=== PATIENT | male | born 1975 | race Caucasian/White ===

== ENCOUNTER 2017-05-28 19:46 | Observation (INO) | payer OTHER ==
--- NOTE | 2017-05-28 20:18 | CPEKG ---
Heart Rate: 94 RR Interval: 638 QRSD Interval: 80 QT Interval: 360 QTC Interval: 451 QRS [place]: 16 T Wave [place]: 6 EKG Severity - ABNORMAL ECG - EKG Impression: ATRIAL FIBRILLATION, V-RATE 71-128 EKG Impression: MULTIPLE VENTRICULAR PREMATURE COMPLEXES Electronically Signed By: Tello Sharif 28-May-2017 23:48:14
--- NOTE | 2017-05-28 20:57 | EDPHY ---
H & P Time Seen by Provider: 05/28/17 20:56 HPI/ROS: Chief complaint. Shortness of breath, tingling HPI. 42-year-old male presents emergency department with sensitive chest discomfort shortness of breath. Symptoms began early this morning. He has some dizziness on standing with activity. He notes left anterior chest pressure going to neck and both arms. Near syncope. Symptoms are worse with exertion. No fever cough. No abdominal pain. No leg symptoms. No similar symptoms previously. ROS Constitutional. no fever/chills, no weakness Eyes. no problems with vision ENT. no sore throat, no nasal drainage Cardiovascular. Chest discomfort Respiratory. Shortness of breath Abdominal. no abdominal pain, no nausea/vomiting, no diarrhea . no problems urinating MS. no calf pain/swelling, no neck/back pain, no joint pain Skin. no rash Lymph. no swollen glands Neuro. Dizziness Past Medical/Surgical History: Dyslipidemia Father with atrial fibrillation Social History: , nonsmoker, no alcohol Smoking Status: Never smoked Physical Exam: General Appearance: Alert well-developed male mild distress vital signs are stable Eyes: Pupils equal and round no pallor or injection. ENT, Mouth: Mucous membranes are moist. Respiratory: There are no retractions, lungs are clear to auscultation. Cardiovascular: Irregularly irregular rate and rhythm Gastrointestinal: Abdomen is soft and nontender, no masses, bowel sounds normal. Neurological: Awake and alert, sensory and motor exams grossly normal. Skin: Warm and dry, no rashes. Musculoskeletal: Neck is supple nontender. Extremities symmetrical, full range of motion. Psychiatric: Patient is oriented X 3, there is no agitation. Constitutional: Initial Vital Signs Temperature (C) 36.7 C 05/28/17 20:01 Heart Rate 85 05/28/17 20:01 Respiratory Rate 18 05/28/17 20:01 O2 Sat (%) 98 05/28/17 20:01 O2 Delivery Mode Room Air Allergies/Adverse Reactions: No Allergies [NKA] Allergy (Verified 03/27/13 15:39) Home Medications: Medication Instructions Recorded NK [No Known Home Meds] 05/28/17 Medical Decision Making - Diagnostics EKG Interpretation: EKG interpreted by me shows atrial fibrillation. Normal axis. QRS is normal. No significant ST elevation or depression. Ventricular response is 90 Imaging Results: Imaging Impressions Chest X-Ray 05/28/17 21:04 Impression: Negative frontal chest radiograph. One-view chest x-ray interpreted by me is normal Procedures: IV normal saline, monitor ED Course/Re-evaluation: Re-evaluation 10:20 p.m.--patient is stable. We discussed imaging lab results as well as EKG. We discussed treatment plan including recommendation for admission. He expresses understanding and IV fluids it appears the patient is somewhat dehydrated. Subcu Lovenox I consulted discussed case with Dr. Espinosa, hospitalist, who agrees to the admission Differential Diagnosis: New onset atrial fibrillation in a patient who lives remotely. I considered acute coronary syndrome. - Data Points Laboratory Results: Laboratory Results 05/28/17 20:19 05/28/17 20:19 05/28/17 05/28/17 05/28/17 20:19 20:19 20:19 WBC 13.15 10^3/uL H 10^3/uL (3.80-9.50) RBC 5.03 10^6/uL 10^6/uL (4.40-6.38) Hgb 15.9 g/dL g/dL (13.7-17.5) Hct 44.2 % % (40.0-51.0) MCV 87.9 fL fL (81.5-99.8) MCH 31.6 pg pg (27.9-34.1) MCHC 36.0 g/dL g/dL (32.4-36.7) RDW 12.2 % % (11.5-15.2) Plt Count 282 10^3/uL 10^3/uL (150-400) MPV 9.5 fL fL (8.7-11.7) Neut % (Auto) 72.3 % % (39.3-74.2) Lymph % (Auto) 19.7 % % (15.0-45.0) [place] % (Auto) 6.9 % % (4.5-13.0) Eos % (Auto) 0.5 % L % (0.6-7.6) Baso % (Auto) 0.2 % L % (0.3-1.7) Nucleat RBC Rel Count 0.0 % % (0.0-0.2) Absolute Neuts (auto) 9.51 10^3/uL H 10^3/uL (1.70-6.50) Absolute Lymphs (auto) 2.59 10^3/uL 10^3/uL (1.00-3.00) Absolute Monos (auto) 0.91 10^3/uL H 10^3/uL (0.30-0.80) Absolute Eos (auto) 0.06 10^3/uL 10^3/uL (0.03-0.40) Absolute Basos (auto) 0.03 10^3/uL 10^3/uL (0.02-0.10) Absolute Nucleated RBC 0.00 10^3/uL 10^3/uL (0-0.01) Immature Gran % 0.4 % % (0.0-1.1) Immature Gran # 0.05 10^3/uL 10^3/uL (0.00-0.10) D-Dimer 0.39 ug/mLFEU ug/mLFEU (0.00-0.50) Sodium 139 mEq/L mEq/L (134-144) Potassium 3.7 mEq/L mEq/L (3.5-5.2) Chloride 106 mEq/L mEq/L (97-110) Carbon Dioxide 20 mEq/l L mEq/l (22-31) Anion Gap 13 mEq/L mEq/L (8-16) BUN 29 mg/dL H mg/dL (7-23) Creatinine 1.5 mg/dL H mg/dL (0.7-1.3) Estimated GFR 51 Glucose 97 mg/dL mg/dL (70-100) Calcium 9.8 mg/dL mg/dL (8.5-10.4) Troponin I < 0.012 ng/mL ng/mL (0-0.034) Medications Given: Discontinued Medications Enoxaparin Sodium (Lovenox) 90 mg SC ONCE ONE Stop: 05/28/17 22:46 Last Admin: 05/28/17 22:50 Dose: 90 mg Sodium Chloride (Ns) 1,000 mls @ 0 mls/hr IV EDNOW ONE; Wide Open PRN Reason: Protocol Stop: 05/28/17 22:31 Last Admin: 05/28/17 22:40 Dose: 1,000 mls Sodium Chloride (Ns) 1,000 mls @ 0 mls/hr IV EDNOW ONE; Wide Open PRN Reason: Protocol Stop: 05/28/17 22:31 Last Admin: 05/28/17 22:41 Dose: 1,000 mls Departure - Departure Disposition: [facility] Inpatient Acute Clinical Impression: Atrial fibrillation Qualifiers: Atrial fibrillation type: persistent Qualified Code(s): I48.1 - Persistent atrial fibrillation Condition: Fair Referrals: Les Carrera DO [Primary Care Provider] - As per Instructions
[2017-05-28 21:08] LABS: % IMMATURE GRANULYOCYTES 0.4 % (0.0-1.1); ABSOLUTE IMMATURE GRANULOCYTES 0.05 10^3/uL (0.00-0.10); ADD DIFF? NO; ADD MORPH? NO; ADD SCAN? NO; ATYPICAL LYMPHOCYTE FLAG 0 (0-99); FRAGMENT RBC FLAG 0 (0-99); HEMATOCRIT 44.2 % (40.0-51.0); HEMOGLOBIN 15.9 g/dL (13.7-17.5); LEFT SHIFT FLG 0 (0-99); LIPEMIA HEMOLYSIS FLAG 90 (0-99); MEAN CELL HEMOGLOBIN 31.6 pg (27.9-34.1); MEAN CELL VOLUME 87.9 fL (81.5-99.8); MEAN PLATELET VOLUME 9.5 fL (8.7-11.7); PLATELET CLUMPS FLAG 0 (0-99); PLATELET COUNT 282 10^3/uL (150-400); RED BLOOD CELL COUNT 5.03 10^6/uL (4.40-6.38); RED CELL DISTRIBUTION WIDTH 12.2 % (11.5-15.2)
[2017-05-28 21:14] LABS: ANION GAP 13 mEq/L (8-16); CALCIUM 9.8 mg/dL (8.5-10.4); CARBON DIOXIDE 20 mEq/l (22-31); CHLORIDE 106 mEq/L (97-110); CREATININE 1.5 mg/dL (0.7-1.3); GLOMERULAR FILTRATION RATE 51; GLUCOSE 97 mg/dL (70-100); POTASSIUM 3.7 mEq/L (3.5-5.2); SODIUM 139 mEq/L (134-144)
[2017-05-28 21:26] LABS: TROPONIN I < 0.012 ng/mL (0-0.034)
[2017-05-28] MEDS ORDERED: NS 1,000 ML IV ONE ×2 (22:30)
[2017-05-28] MEDS ORDERED: ENOXAPARIN 100 MG/ML SYR SC ONE (22:45)
[2017-05-28] MEDS ORDERED: ACETAMINOPHEN 325 MG TAB PO PRN (23:07)
[2017-05-28] MEDS ORDERED: ONDANSETRON 4 MG/2 ML VIAL IVP PRN (23:07)
--- NOTE | 2017-05-29 01:15 | GHP ---
[f rep st] HISTORY AND PHYSICAL DATE OF ADMISSION: 05/28/2017 The patient is a pleasant 42-year-old gentleman with a family history of coronary disease, no real p ast medical history, who presents with palpitation or chest heaviness. Last week, he was in [place], and he may have felt a little bit off, but no chest heaviness. He has not had palpitations, chest pain, chest burning, or dyspnea on exertion. He noted symptoms at about 9 o'clock this morni ng. There was some orthopnea as well. He also noted some anterior chest pressure going to his neck and both arms. The patient does not have a history of hypertension, no previous history of stroke. He does not smo ke. He drinks alcohol on the weekends, not that often. He does not on perform super endurance exer cise. He does have a family history of atrial fibrillation. REVIEW OF SYSTEMS: Complete 10-point review of systems conducted, negative except as noted in the H PI. PAST MEDICAL HISTORY: Hyperlipidemia. He had cataract surgery. Mild reflux. FAMILY HISTORY: Father had atrial fibrillation. SOCIAL HISTORY: , lives in [place]. Works in the construction industry. No stimulant dr palafox. Lifetime nonsmoker. ALLERGIES: No known drug allergies. MEDICATIONS ARE: Qmly-pmn-tmthbty reflux medicine. PHYSICAL EXAMINATION: VITAL SIGNS: Temp 36.7, pulse 85, breathing 18 times a minute, 98% on room a ir, blood pressure 108/70. GENERAL: No acute distress. HEENT: Sclerae anicteric. Oropharynx elizabeth ar. Mucous membranes moist. NECK. Supple. No lymphadenopathy, JVD. LUNGS: Clear to auscultatio n bilaterally. HEART: S1, S2. ABDOMEN: Soft, nontender, nondistended. LOWER EXTREMITIES: Witho ut edema. Calves nontender. SKIN: Without rash. NEUROLOGIC: Nonfocal. LABORATORY DATA: Sodium 139, potassium 3.7, chloride 106, bicarb 20, BUN 29, creatinine 1.5, glucos e less than 0.012. D-dimer 0.039. White count 13.1, hematocrit 44, platelets 282,000. Chest x-ray , interpreted by me, shows no acute cardiopulmonary disease. EKG, interpreted by me, shows atrial f ibrillation at 94 with normal axis and intervals. There are no ST or T-wave changes. There are kendell quent PVC's. I discussed the case with Dr. Tello Sharif, as well as Dr. Salvador Donis. ASSESSMENT/PLAN: This is a 42-year-old gentleman presents with atrial fibrillation: 1. Atrial fibrillation. It is not a clear risk factor that he has. He is well rate controlled. D oes not even know agent. He was given enoxaparin here. I will make him n.p.o. past midnight. I di scussed with Cardiology who will perform ROMÁN cardioversion in the morning. His CHADS Vasc is 0. 2. Elevated creatinine. His baseline creatinine is a bit lower, looks like it is about 1.2. Clini colin, he appears to be dry. He received some IV fluids in the emergency department. Will repeat i n the morning. 3. Question hypothyroidism. The patient has atrial fibrillation. Will check in the morning. 4. Mild acidosis. The patient has a non gap acidosis. Will repeat it in the morning. 5. Leukocytosis, no clear etiology. Will follow. Perhaps he has a viral illness. He has a normal differential. 6. Disposition. Observation status. /[id number]/MODL
[2017-05-29 05:00] LABS: ANION GAP 10 mEq/L (8-16); CALCIUM 8.5 mg/dL (8.5-10.4); CARBON DIOXIDE 22 mEq/l (22-31); CHLORIDE 111 mEq/L (97-110); CREATININE 1.4 mg/dL (0.7-1.3); GLOMERULAR FILTRATION RATE 55; GLUCOSE 88 mg/dL (70-100); POTASSIUM 4.2 mEq/L (3.5-5.2); SODIUM 143 mEq/L (134-144)
[2017-05-29] MEDS ORDERED: ATROPINE SULFATE 1 MG/10 ML SYR ONE (08:59)
[2017-05-29] MEDS ORDERED: ENOXAPARIN 80 MG/0.8 ML SYR SC SCH (09:00)
[2017-05-29] MEDS ORDERED: LIDOCAINE 2% 5 ML SDV ONE (09:35)
[2017-05-29] MEDS ORDERED: PROPOFOL 200 MG/20 ML VIAL ONE (09:35)
--- NOTE | 2017-05-29 09:47 | PDANEPAE ---
ANE History of Present Illness 42 year old male with recent onset of AF with CP/SOB/fatigue. This is the first arrhythmia for this patient. ANE Past Medical History Past Medical History: No URI/fever. NPO today. Cataract surgery B - Cardiovascular History Hx Hypertension: No Hx Arrhythmias: Yes Hx Chest Pain: Yes Hx Coronary Artery / Peripheral Vascular Disease: No Hx CHF / Valvular Disease: No Hx Palpitations: No - Pulmonary History Hx COPD: No Hx Asthma/Reactive Airway Disease: No Hx Recent Upper Respiratory Infection: No Hx Oxygen in Use at Home: No Hx Sleep Apnea: No - Endocrine History Hx Diabetes: No - Renal History Hx Renal Disorders: No - Liver History Hx Hepatic Disorders: No - GI History GERD: mild GERD Comment: Controlled with omeprazole ANE Review of Systems - Exercise capacity METS (RN): 5 METS METS Comment: Before recent onset of arrhythmia - Systems Constitutional: Reports: no symptoms Cardiac: Reports: chest pain Respiratory: Reports: no symptoms ANE Patient History - Allergies Allergies/Adverse Reactions: No Allergies [NKA] Allergy (Verified 03/27/13 15:39) - Home Medications Home medications: home medication list seen and reviewed Home Medications: NK [No Known Home Meds] 05/28/17 [Last Taken Unknown] - Anes Hx Anes Hx: no prior problems - Smoking Hx Smoking Status: Never smoked ANE Labs/Vital Signs - Labs Result Diagrams: 05/28/17 20:19 05/29/17 03:49 - Vital Signs Blood Pressure: 90/66 Heart Rate: 71 Respiratory Rate: 15 O2 Sat (%): 96 Height: 182.88 cm Weight: 90.72 kg ANE Physical Exam - Airway Mallampati Score: Class 3 Mouth exam: normal dental/mouth exam - Cardiovascular Cardiovascular: irregularly irregular - ASA Status ASA Status: II ANE Anesthesia Plan Total IV Anesthesia: TIVA GA
--- NOTE | 2017-05-29 10:15 | POSTANESTH ---
Post Anesthetic Evaluation Cardiovascular Status: Normal, Stable Respiratory Status: Normal, Stable Level of Consciousness/Mental Status: Can Participate in Eval, Mildly Sleepy, Arousable Pain Control: Adequate, Prn Tx Ordered Nausea/Vomiting Control: Adequate, Prn Tx Ordered Complications Possibly Related to Anesthesia: None Noted (Coughing a bit an awakening. Resolved as pt more alert and cough more effective. SpO2 >92% throughout awakening.)
--- NOTE | 2017-05-29 10:17 | CPEKG ---
Heart Rate: 85 RR Interval: 706 P-R Interval: 156 QRSD Interval: 80 QT Interval: 380 QTC Interval: 452 P [place]: 65 QRS [place]: 14 T Wave [place]: 34 EKG Severity - NORMAL ECG - EKG Impression: SINUS RHYTHM Electronically Signed By: Dario Donis 29-May-2017 15:13:53
--- NOTE | 2017-05-29 10:46 | CPIP ---
[f rep st] INVASIVE CARDIAC PROCEDURE DATE OF PROCEDURE: 05/29/2017 PROCEDURE: 1. Transesophageal echocardiogram. 2. Intraoperative bubble study. 3. Cardioversion. The patient gave informed consent for transesophageal echocardiographic study and a cardioversion. H is was present and she is a nurse and agreed with this plan. They understood the risks and the options and want to proceed. DESCRIPTION OF PROCEDURE: The transesophageal echocardiogram was performed with no problem at all, passing the scope and excellent pictures were obtained. His interatrial septum was excellent on the bubble study. He had no signs of clot in the left atrial appendage. No smoke and no other problems. We then proceeded to cardiovert him with 360 watt seconds with 1 cardioversion. He converted from at rial fibrillation to normal sinus rhythm. He is waking up at the time of my dictation. He is talking to the nursing staff. The whole procedure was done with Anesthesia present. There were no complications. His condition at the end of study was excellent. RECOMMENDATIONS: 1. Follow up with Dr. Donis in 4 weeks. 2. Eliquis 5 mg twice a day for 5 weeks after today. 3. Ongoing preventative therapy for his lipid issues. Electrophysiology consultation is available at any time. Full sleep study has been ordered. /[id number]/MODL
--- NOTE | 2017-05-29 11:05 | GCON ---
[f rep st] CONSULTATION CARDIOLOGY CONSULTATION CHIEF COMPLAINT: Shortness of breath. Palpitations. He has been having some fast heartbeats, some discomfort in the center of his chest since yesterday morning. He has not had this before, although he has a family history of atrial fibrillation. His is a nurse who used to work at [facility] [employer], and she has been watching him. He has no orthopnea , PND, dyspnea on exertion usually. He does not normally have chest pain. He has had no fever, chills, cough. No nausea vomiting, diarrhea, or constipation. He is active and he is not having any limiting symptoms except for his current fast heartbeat and some chest discomfort that he has just had. There is no radiation to the jaw or neck. There is no radiation to the arm. There is no exertional discomfort. He has no history of trauma, no history of hot, swollen joints, no history of rashes. He does not drink significant amounts of alcohol. He has a little bit of snoring but his says that is not a major issue and he does not have apnea. CARDIAC RISK FACTORS: Negative for hypertension, diabetes mellitus, hyperuricemia, smoking, obesity or family history of premature coronary disease. Positive for dyslipidemia. He is untreated. REVIEW OF SYSTEMS: A 12-point review of systems negative, except as noted above. He has had bilateral cataract surgery. SOCIAL HISTORY: He lives in [place]. His is a nurse who used to work here at [employer] [facility]. 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 He does not smoke. He does not drink significant amounts of alcohol. ALLERGIES: None. MEDICATIONS: No prescription medicines. PHYSICAL EXAMINATION: VITAL SIGNS: Blood pressure 110/70, heart rate 115, respiratory rate 12. GENERAL: He is comfortable in the hospital bed. HEENT: Pupils status post iridectomy. Mucous membranes and mouth moist. NECK: Supple. CARDIOVASCULAR: S1, S2, systolic murmur in the left sternal border. No diastolic murmur. No S3, S4. No rubs. PULMONARY: Rhonchi. No rales, wheezing, or dullness. CVA: No tenderness. CARDIOVASCULAR: Irregularly irregular heart rate. Soft systolic murmur. ABDOMEN: Soft, nontender, without masses. EXTREMITIES: No edema, inflammation, or ulceration. SKIN: Age-related changes. NEUROLOGIC: Cranial nerves 2-12 grossly normal except for the iridectomy. His motor and sensory intact. PSYCH: No obvious anxiety or depression. LYMPH: No obvious lymphadenopathy. LABORATORY DATA: D-dimer 0.03. His creatinine is 1.5, BUN 29, potassium 3.7. Hematocrit 44, platelets 282. He has atrial fibrillation. ASSESSMENT AND PLAN: 1. Atrial fibrillation. The cause for his atrial fibrillation is not clear. I want for sure for him to do a sleep study, and we have discussed this. I have offered him a consultation with the electrophysiology service but he is not interested in that right now. He would like to proceed with ROMÁN cardioversion. He understands the risks and the options. There is nothing to suggest pulmonary embolic disease or any other severe pulmonary disease as a cause for his atrial arrhythmias at this time but we will watch over time to see if he develops any other issues. We have talked about Electrophysiology being available to him any time if he would like to use them. He understands and is aware of that. His is a nurse who worked at [employer] [facility] and I have known her for years. She would like to follow up with me in 5 weeks after he has finished his anticoagulation and then we will see if he gets a repeat episode. We will send him to Electrophysiology then but if it goes away and he does not have any recurrences for years and years, we will just monitor his health overall, watch his lipids and make sure he is doing okay. She agrees that he will get a sleep study. 2. Status post iridectomy. 3. Dyslipidemia. He is working on that with his diet and exercise. All his questions have been answered. We are very happy to proceed with his procedures. /[id number]/MODL MTDD
[2017-05-29 11:35] VITALS: BP 117/73; PULSE 60; RESP 20; TEMP 98.1; O2SAT 95
--- NOTE | 2017-05-29 14:06 | GDS ---
[f rep st] DISCHARGE SUMMARY ALL DIAGNOSES: Atrial fibrillation, new onset, with rates around 100 beats per minute. He was quit e symptomatic however. HOSPITAL COURSE: He underwent DC cardioversion by Dr. Donis, with successful return to normal sinu s rhythm. He also had a transesophageal echocardiogram along with this. He will be discharged on E liquis. I will not provide him any beta blockers or calcium channel blockers, given his borderline bradycardia. I gave him warnings for what to avoid while on Eliquis. He and his understand th is. They will follow up with Dr. Donis in about 1 month. /[id number]/MODL
--- NOTE | 2017-05-29 14:07 | ECHO ---
[id number] + + [address] : : [place] [address] : : [phone] + + Adult Echocardiographic Report + --------+ :Name: CRUZZENIA Date: 05/29/2017 09:35 AM : : Hospital Admission Number: [id number] Locat ion: [facility]: :: 1975 Gender: Male : :Age: 42 yrs Race: WH : :Reason For Study: Eval LV Fx : :History: Pre Cardioversion : + --------+ MMode/2D Measurements \T\ Calculations IVSd: 1.1 cm LVIDd: 4.1 cm FS: 29.8 % Ao root diam: 3.4 cm LVPWd: 1.0 cm LVIDs: 2.9 cm EDV(Teich): 76.0 ml ACS: 1.9 cm ESV(Teich): 32.3 ml EF(Teich): 57.4 % Normal Measurement Values: + + :LVIDd (3.5-5.7cm) IVSd (0.6-1.1cm) LVPWd (0.6-1.1cm) Aortic Root (2.0-3.7cm)Left Atrium (1.5-4.0cm): :LV Vol(d) (76-115ml) LV Vol(s) (29-48ml) Ejec Fraction (50-65%)PV Mykel (0.6- 1.2m/s) TV Mykel (0.4-1.0m/s) : :MV E Mykel (0.8-1.0m/s)MV A Mykel (0.3-1.0m/s)LVOT Mykel (0.7-1.2m/s) Asc Ao Mykel ( 0.9-1.8m/s) : + + Doppler Measurements \T\ Calculations MV E max mykel: 64.7 cm/sec Ao V2 max: 96.4 cm/sec LV V1 max: 75.5 cm/sec MV A max mykel: 51.8 cm/sec Ao max P.7 mmHg LV V1 max P.3 mmHg MV E/A: 1.2 Left Ventricle The left ventricle is normal in size. There is normal left ventricular wall thickness. The left ventricular ejection fraction is normal. Ejection Fraction = 60%. No regional wall motion abnormalities noted. The rhythm is atrial fibrillation. Right Ventricle The right ventricle is normal in size and function. Atria The left atrial size is normal. Right atrial size is normal. Mitral Valve The mitral valve is normal in structure and function. There is no evidence of mitral valve prolapse. There is no mitral valve stenosis. There is trace mitral regurgitation. Tricuspid Valve The tricuspid valve is normal in structure and function. No tricuspid regurgitation. Aortic Valve The aortic valve is normal in structure and function. There is no aortic stenosis. There is no aortic insufficiency. Pulmonic Valve The pulmonic valve is normal in structure and function. There is no pulmonic valvular regurgitation. Great Vessels The aortic root is normal size. Pericardium/Pleural There is no pericardial effusion. Conclusion A complete two-dimensional transthoracic echocardiogram was performed (2D, M-mode, Doppler and color flow Doppler). The left ventricle is normal in size. The left ventricular ejection fraction is normal. Ejection Fraction = 60%. No regional wall motion abnormalities noted. The rhythm is atrial fibrillation. The right ventricle is normal in size and function. The left atrial size is normal. Right atrial size is normal. The mitral valve is normal in structure and function. There is trace mitral regurgitation. The aortic valve is normal in structure and function. There is no pericardial effusion. Final Reading Physician: Codey Stock signed on 05/29/2017 02:05 PM Ordering Physician: Liban Espinosa Performed By: Bernardino Chin, LORRICS
== END 2017-05-29 15:49 | disposition home or self-care (01) ==
LOC: INTOOBSV 23:04 → F2W 05-29 00:02
PROVIDERS: ADMIT Internal Medicine; ATTEND Internal Medicine
PROC: 5A2204Z Restoration of Cardiac Rhythm, Single (ICD-10-PCS; principal; 2017-05-28)
DX: I48.1 Persistent atrial fibrillation (principal); R79.89 Other specified abnormal findings of blood chemistry; D72.829 Elevated white blood cell count, unspecified; E78.5 Hyperlipidemia, unspecified; Z82.49 Family history of ischemic heart disease and other diseases of the circulatory system
CPT/HCPCS: J0461; J1650; J2704